=== PATIENT | male | born 1990 | race American Indian/Alaskan Native ===

== ENCOUNTER 2021-05-24 10:01 | Emergency (ER) | payer SELFPAY ==
--- NOTE | 2021-05-24 11:16 | EDM.PDOC ---
ED HPI GENERAL MEDICAL PROBLEM - General Chief Complaint: Lower Extremity Injury/Pain Stated Complaint: RENETTA AMB Time Seen by Provider: 05/24/21 10:13 Source of Information: Reports: Patient History Limitations: Reports: No Limitations - History of Present Illness INITIAL COMMENTS - FREE TEXT/NARRATIVE: The patient presents by [facility] for left knee pain. He says he jumped out of his bunk this morning and felt pain in his left knee. He then was cleaning a shower and got up from that and his his knee on a small shelf. He has no other injuries. Onset: Sudden Duration: Minutes: Location: Reports: Lower Extremity, Left (knee) Quality: Reports: Sharp Severity: Moderate Improves with: Reports: Immobilization Worsens with: Reports: Movement Context: Reports: Trauma (hit knee and jumped off of bunk) Associated Symptoms: Reports: No Other Symptoms Treatments [employer]: Reports: Cold Therapy - Related Data Allergies Allergy/AdvReac Type Severity Reaction Status Date / Time No Known Allergies Allergy Verified 05/24/21 10:09 Home Meds: Home Meds Potassium Chloride 10 meq PO DAILY 05/24/21 [History] lisinopriL [Lisinopril] 10 mg PO DAILY 05/24/21 [History] Past Medical History Cardiovascular History: Reports: Hypertension Endocrine/Metabolic History: Reports: Hypokalemia Social & Family History - Tobacco Use Tobacco Use Status *Q: Current Every Day Tobacco User Years of Tobacco use: 18 Packs/Tins Daily: 0.2 - Recreational Drug Use Recreational Drug Use: No Review of Systems - Review of Systems Review Of Systems: See Below Constitutional: Reports: No Symptoms Eyes: Reports: No Symptoms Ears: Reports: No Symptoms Nose: Reports: No Symptoms Mouth/Throat: Reports: No Symptoms Respiratory: Reports: No Symptoms Cardiovascular: Reports: No Symptoms GI/Abdominal: Reports: No Symptoms Genitourinary: Reports: No Symptoms Musculoskeletal: Reports: Other (Left knee pain and swelling) ED EXAM, GENERAL - Physical Exam Exam: See Below Exam Limited By: No Limitations General Appearance: Alert, No Apparent Distress Ears: Normal External Exam Nose: Normal Inspection Head: Atraumatic, Normocephalic Neck: Normal Inspection Respiratory/Chest: No Respiratory Distress Extremities: Other (Pain upon palpation to the entire knee with some edema. Ligaments appear stable but patient was splinting through exam because of pain. Mild edema noted. Good sensation and pulses distally.) Course - Vital Signs Last Recorded V/S: Last Vital Signs Temp 97.7 F 05/24/21 10:07 Pulse 108 H 05/24/21 10:07 Resp 16 05/24/21 10:07 BP 127/87 05/24/21 10:07 Pulse Ox 98 05/24/21 10:07 - Orders/Labs/Meds Orders: Active Orders 24 hr Category Date Time Status Knee Min 4V Lt [CR] Stat Exams 05/24/21 10:19 Taken Durable Medical Equipment for Discharge [DME for Oth 05/24/21 11:16 Ordered Discharge] [COMM] Stat - Re-Assessments/Exams Free Text/Narrative Re-Assessment/Exam: 05/24/21 11:14 X-ray of his left knee shows nothing acute. I will give him a knee immobilizer. Departure - Departure Time of Disposition: 11:25 Disposition: Home, Self-Care 01 Condition: Good Clinical Impression: Contusion of left knee Qualifiers: Encounter type: initial encounter Qualified Code(s): S80.02XA - Contusion of left knee, initial encounter Left knee sprain Qualifiers: Encounter type: initial encounter Involved ligament of knee: unspecified ligament Qualified Code(s): S83.92XA - Sprain of unspecified site of left knee, initial encounter - Discharge Information *PRESCRIPTION DRUG MONITORING PROGRAM REVIEWED*: Not Applicable *COPY OF PRESCRIPTION DRUG MONITORING REPORT IN PATIENT MAGALI: Not Applicable Referrals: PCP,None [Primary Care Provider] - David Schulte MD [Physician] - 1 Week Forms: ED Department Discharge, ED Return to Work/School Form Additional Instructions: Ice your knee for 15 minutes 3 times per day. Elevate your knee as much as you can for the next couple of days to reduce the swelling. Wear the knee immobilizer to prevent further injury. Follow up with Dr Schulte. Please return if you are worse. Sepsis Event Note (ED) - Focused Exam Vital Signs: Vital Signs Temp Pulse Resp BP Pulse Ox 05/24/21 10:07 97.7 F 108 H 16 127/87 98 - My Orders Last 24 Hours: My Active Orders 05/24/21 10:19 Knee Min 4V Lt [CR] Stat 05/24/21 11:16 Durable Medical Equipment for Discharge [DME for Discharge] [COMM] Stat - Assessment/Plan Last 24 Hours: My Active Orders 05/24/21 10:19 Knee Min 4V Lt [CR] Stat 05/24/21 11:16 Durable Medical Equipment for Discharge [DME for Discharge] [COMM] Stat
--- NOTE | 2021-05-24 19:49 | CR ---
Left knee: 4 views of the left knee were obtained. Comparison: No prior left knee study is available. Medial and lateral joint spaces are maintained in height. Equivocal small joint effusion is noted. No acute fracture, dislocation or other bony abnormality is appreciated. Impression: 1. Questionable small joint effusion. 2. Nothing acute is otherwise seen on left knee exam. Diagnostic code #2
== END 2021-05-24 13:16 | disposition home or self-care (01) ==
LOC: JD.ED 10:01
DX: S83.92XA Sprain of unspecified site of left knee, initial encounter (principal); I10 Essential (primary) hypertension; Z72.0 Tobacco use; Z79.899 Other long term (current) drug therapy; W17.89XA Other fall from one level to another, initial encounter; Y93.39 Activity, other involving climbing, rappelling and jumping off
CPT/HCPCS: 73564-26-LT; 73564-LT; 99282; 99283-25